=== PATIENT | female | born 1980 | race Caucasian/White ===

== ENCOUNTER 2017-04-07 20:49 | Observation (INO) | payer MEDICAID ==
[2017-04-07 20:50] VITALS: BMI 24.0
--- NOTE | 2017-04-07 21:42 | ED PDOC ---
Arrival/HPI - General Time Seen by Provider: 04/07/17 21:28 Historian: Patient - History of Present Illness Narrative History of Present Illness (Text): 04/07/17 21:41 Laurie Carrillo is a 36 year old female who presents to the ED complaining of intermittent dizziness,near fainting episodes. Patient states she began experiencing intermittent dizziness a few days prior while at work with associated near-syncopal episodes, left eye blurriness, generalized weakness, and head pressure. Patient notes she took Meclizine at home, but denies any relief. Patient denies any loss of consciousness, weakness/numbness, chest pain , shortness of breath, nausea, diarrhea, back pain, neck pain, or any complaints. Symptom Onset: Gradual Symptom Course: Intermittent Activities at Onset: Light Context: Home Past Medical History - Provider Review Nursing Documentation Reviewed: Yes - Past History Past History: No Previous - Tetanus Immunization Tetanus Immunization: Unknown - Neurological Hx Neurological Disorder: Yes Hx Migraine: Yes - Genitourinary/Gynecological Hx Genitourinary Disorders: Yes Hx Cervical Cancer: Yes (4-5 MOS AGO) Other/Comment: multiparity - Past Surgical History Past Surgical History: No Previous - Surgical History Hx Section: Yes Hx Dilation and Curettage: Yes Hx Tubal Ligation: Yes Other/Comment: OVARIAN CYSTECTOMY, PARTIAL REMOVAL OF CERVIX DUE TO CA ? - Anesthesia Hx Anesthesia: Yes Hx Anesthesia Reactions: No - Suicidal Assessment Feels Threatened In Home Enviroment: No Family/Social History - Physician Review Nursing Documentation Reviewed: Yes Family/Social History: Unknown Family HX Smoking Status: Never Smoked Hx Alcohol Use: No Hx Substance Use Treatment: No Allergies/Home Meds Allergies/Adverse Reactions: Allergies No Known Allergies Allergy (Verified 03/24/16 22:08) Home Medications: Home Meds Medication Instructions Recorded Confirmed No Known Home Med 10/24/12 03/24/16 Review of Systems - Physician Review All systems were reviewed & negative as marked: Yes - Review of Systems Constitutional: Other (+generalized weakness). absent: Fevers Eyes: Vision Changes (+left eye blurriness) ENT: Normal Respiratory: Normal. absent: SOB, Cough Cardiovascular: Other (+near-syncopal). absent: Chest Pain Gastrointestinal: absent: Abdominal Pain, Diarrhea, Nausea Genitourinary Female: Normal. absent: Dysuria, Frequency, Hematuria, Urine Output Changes Musculoskeletal: Normal. absent: Back Pain, Neck Pain Skin: Normal Neurological: Dizziness Endocrine: Normal Hemo/Lymphatic: Normal Psychiatric: Normal Physical Exam Vital Signs Reviewed: Yes Vital Signs Temp Pulse Resp BP Pulse Ox 04/08/17 02:58 85 18 111/73 98 04/08/17 00:40 80 18 104/62 99 04/07/17 23:58 97.8 F 81 16 101/67 99 04/07/17 21:38 98.4 F 78 18 106/69 98 Temperature: Afebrile Blood Pressure: Normal Pulse: Regular Respiratory Rate: Normal Appearance: Positive for: Well-Appearing, Non-Toxic, Comfortable Pain Distress: None Mental Status: Positive for: Alert and Oriented X 3 - Systems Exam Head: Present: Atraumatic, Normocephalic Pupils: Present: PERRL Extroacular Muscles: Present: EOMI Conjunctiva: Present: Normal Ears: Present: Normal, NORMAL TM, Normal Canal. No: Erythema, TM Bulging, Fluid , TM Perf Mouth: Present: Moist Mucous Membranes Pharnyx: Present: Normal. No: ERYTHEMA, EXUDATE, TONSILS ENLARGED, Peritonsilar Swelling, Uvular Deviation, Muffled/Hoarse Voice, Strider Neck: Present: Normal Range of Motion. No: Meningeal Signs, MIDLINE TENDERNESS , Paraspinal Tenderness Respiratory/Chest: Present: Clear to Auscultation, Good Air Exchange. No: Respiratory Distress, Accessory Muscle Use Cardiovascular: Present: Regular Rate and Rhythm, Normal S1, S2. No: Murmurs Abdomen: Present: Normal Bowel Sounds. No: Tenderness, Distention, Peritoneal Signs Back: Present: Normal Inspection. No: CVA Tenderness, Midline Tenderness, Paraspinal Tenderness Upper Extremity: Present: Normal Inspection. No: Cyanosis, Edema Lower Extremity: Present: Normal Inspection. No: Edema Neurological: Present: GCS=15, CN II-XII Intact, Speech Normal, Motor Func Grossly Intact, Normal Sensory Function, Normal Cerebellar Funct, Memory Normal Skin: Present: Warm, Dry, Normal Color. No: Rashes Psychiatric: Present: Alert, Oriented x 3, Normal Insight, Normal Concentration Medical Decision Making ED Course and Treatment: 04/07/17 21:41 Impression: 36 year old female c/o dizziness, near-syncope, and generalized weakness. Differential Diagnosis included but are not limited to: near-syncope Plan: -- CT Head w/o contrast -- EKG -- CXR -- Labs, cardiac enzymes -- Urinalysis, urine drug screen -- IV fluids -- Reassess and disposition Progress Notes: 04/07/17 22:03 Reviewed EKG, NSR at [address]-segment elevations or depressions, no T-wave inversions, normal intervals. 04/07/17 23:42 Reviewed radiology, CT Head shows: No acute intracranial hemorrhage, or suspicious mass effect. CXR shows no acute processes. 04/08/17 02:21 Case discussed with medical advisor exhibition organiser, who is aware and agrees with plan. House physician notified. 04/08/17 02:[address] Vail, who is aware and agrees with plan. Accepts pt in to hospitalist service. Pt will go to remote telemetry observation for near- syncope and intractable dizziness. Pt is no acute distress. Discussed results and hospital observation with pt, who is aware and verbalizes understanding. - Lab Interpretations Lab Results: 04/07/17 22:50 04/07/17 22:50 Lab Results 04/07/17 23:47: Urine Opiates Screen Negative, Urine Methadone Screen Negative, Ur Barbiturates Screen Negative, Ur Phencyclidine Scrn Negative, Ur Amphetamines Screen Negative, U Benzodiazepines Scrn Negative, U Oth Cocaine Metabols Negative, U Cannabinoids Screen Negative 04/07/17 23:41: Urine Color Yellow, Urine Appearance Clear, Urine pH 7.0, Ur Specific [place] 1.015, Urine Protein Negative, Urine Glucose (UA) Negative, Urine Ketones Negative, Urine Blood Negative, Urine Nitrate Negative, Urine Bilirubin Negative, Urine Urobilinogen 1.0 H, Ur Leukocyte Esterase Negative, Urine HCG, Qual Negative 04/07/17 22:50: Phosphorus 4.1, Magnesium 2.0 04/07/17 22:50: WBC 8.2, RBC 4.19, Hgb 13.0, Hct 38.4, MCV 91.6, MCH 31.0, MCHC 33.9, RDW 12.7, Plt Count 190, MPV 11.2 H 04/07/17 22:50: PT 10.2, INR 0.94, APTT 27.3 04/07/17 22:50: Sodium 136, Potassium 3.7, Chloride 99, Carbon Dioxide 29, Anion Gap 12, BUN 17, Creatinine 0.8, Est GFR ( Amer) > 60, Est GFR (Non- Af Amer) > 60, Random Glucose 89, Calcium 8.9, Total Bilirubin 0.5, AST 29, ALT 29, Alkaline Phosphatase 58, Lactate Dehydrogenase 429, Total Creatine Kinase 68 , Troponin I < 0.01, Total Protein 7.5, Albumin 4.1, Globulin 3.3, Albumin/ Globulin Ratio 1.2 I have reviewed the lab results: Yes - RAD Interpretation Narrative RAD Interpretations (Text): CT Head shows: Brain: No acute intracranial hemorrhage. No significant white matter disease. No edema. Ventricles: No significant ventriculomegaly. Bones: No acute displaced fracture. Sinuses: Unremarkable as visualized. No acute sinusitis. Mastoid air cells: Unremarkable as visualized. No mastoid effusion. IMPRESSION: No acute intracranial hemorrhage, or suspicious mass effect. CXR shows no acute processes. Radiology Orders: 04/07/17 21:46 HEAD W/O CONTRAST [CT] Stat 04/07/17 21:47 CHEST PORTABLE [RAD] Stat Steam Shovelman: ED Physician, Radiologist - EKG Interpretation Interpreted by ED Physician: Yes Type: 12 lead EKG - Medication Orders Current Medication Orders: Acetaminophen (Tylenol 325mg Tab) 650 mg PO Q6H PRN PRN Reason: Fever >100.4 F Acetaminophen/Butalbital/Caffeine (Fioricet) 1 tab PO Q4H PRN PRN Reason: Headache Albuterol Sulfate (Albuterol 0.083% Inhal [place] (2.5 Mg/3 Ml) Ud) 2.5 mg IH Q2H PRN PRN Reason: Shortness of Breath Famotidine (Pepcid) 20 mg PO BID [facility] Last Admin: 04/08/17 11:41 Dose: 20 mg Sodium Chloride (Sodium Chloride 0.9%) 1,000 mls @ 150 mls/hr IV .Q6H40M [facility] Ibuprofen (Motrin Tab) 400 mg PO Q6H PRN PRN Reason: Pain, Mild (1-3) Meclizine HCl (Antivert) 25 mg PO Q8H PRN PRN Reason: Dizziness Ondansetron HCl (Zofran Inj) 4 mg IVP Q6H PRN PRN Reason: Nausea/Vomiting Discontinued Medications Acetaminophen/Butalbital/Caffeine (Fioricet) 1 tab PO ONCE STA Stop: 04/08/17 02:47 Last Admin: 04/08/17 02:58 Dose: 1 tab Re-Assess: SELENE Pain Assessment Document 04/08/17 03:58 RR (Rec: 04/08/17 04:39 RR [id number]) Pain Reassessment Is this a pain reassessment? Yes Sleep Is patient sleeping during reassessment? Yes Pain Scale Used Pain Scale Used FLACC Sodium Chloride (Sodium Chloride 0.9%) 1,000 mls @ 100 mls/hr IV .Q10H [facility]RIELE Last Admin: 04/07/17 22:53 Dose: 100 mls/hr Iohexol (Omnipaque 350 150 Ml) Confirm Administered Dose 150 ml .ROUTE .STK-MED ONE Stop: 04/08/17 17:56 Ketorolac Tromethamine (Toradol) 30 mg IVP STAT STA Stop: 04/08/17 10:14 - Scribe Statement The provider has reviewed the documentation as recorded by the Dani Martínez Provider Attestation: All medical record entries made by the Dani were at my direction and personally dictated by me. I have reviewed the chart and agree that the record accurately reflects my personal performance of the history, physical exam, medical decision making, and the department course for this patient. I have also personally directed, reviewed, and agree with the discharge instructions and disposition. Disposition/Present on Arrival - Present on Arrival Any Indicators Present on Arrival: No History of DVT/PE: No History of Uncontrolled Diabetes: No Urinary Catheter: No History Surgical Site Infection Following: None - Disposition Have Diagnosis and Disposition been Completed?: Yes Diagnosis: Near syncope, Dizziness Disposition: HOSPITALIZED Disposition Time: Patient Plan: Observation Patient Problems: Current Active Problems Problem Status Onset Dizziness Acute Near syncope Acute Condition: STABLE
[2017-04-07] MEDS: Sodium Chloride 0.9% 1,000 ML IV SCH (22:53)
[2017-04-07 23:02] LABS: HEMATOCRIT 38.4 % (36.0-48.0); MEAN CELL VOLUME 91.6 fL (80.0-105.0); MEAN CORPUSCULAR HGB CONC 33.9 g/dl (31.0-37.0); MEAN PLATELET VOLUME 11.2 fl (7.0-11.0); RED CELL DISTRIBUTION WIDTH 12.7 % (11.5-14.5); WHITE BLOOD COUNT 8.2 10^3/ul (4.5-11.0)
[2017-04-07 23:09] LABS: ALB/GLOB RATIO 1.2 (1.1-1.8); ALKALINE PHOSPHATASE 58 U/L (38-133); ALT/SGPT 29 U/L (7-56); AST/SGOT 29 U/L (15-39); BILIRUBIN,TOTAL 0.5 mg/dL (0.2-1.3); BLOOD UREA NITROGEN 17 mg/dL (7-21); CALCIUM 8.9 mg/dL (8.4-10.5); CARBON DIOXIDE 29 mmol/L (21-33); CHLORIDE 99 mmol/L (98-107); GFR AFRICAN-AMERICAN > 60; GLUCOSE,RANDOM 89 mg/dL (70-110); POTASSIUM 3.7 mmol/L (3.6-5.0); SODIUM 136 mmol/L (132-148); TOTAL PROTEIN 7.5 g/dL (5.8-8.3)
[2017-04-07 23:21] LABS: TROPONIN I < 0.01 ng/mL
[2017-04-07 23:29] LABS: INR 0.94 (0.93-1.08); PARTIAL THROMBOPLASTIN TIME 27.3 Seconds (23.7-30.8)
--- NOTE | 2017-04-07 23:35 | CT ---
EXAM: CT Head Without Intravenous Contrast CLINICAL HISTORY: 36 years old, female; Signs and symptoms; Dizziness; Additional info: Dizzy TECHNIQUE: Axial computed tomography images of the head/brain without intravenous contrast. This CT exam was performed using one or more of the following dose reduction techniques: automated exposure control, adjustment of the mA and/or kV according to patient size, and/or use of iterative reconstruction technique. COMPARISON: No relevant prior studies available. FINDINGS: Brain: No acute intracranial hemorrhage. No significant white matter disease. No edema. Ventricles: No significant ventriculomegaly. Bones: No acute displaced fracture. Sinuses: Unremarkable as visualized. No acute sinusitis. Mastoid air cells: Unremarkable as visualized. No mastoid effusion. IMPRESSION: No acute intracranial hemorrhage, or suspicious mass effect. Acute infarction may be CT occult within first 24 hours. If a focal deficit persists, consider followup CT or MRI for further evaluation.
[2017-04-08 00:16] LABS: URINE BILIRUBIN NEGATIVE (NEGATIVE); URINE BLOOD NEGATIVE (NEGATIVE); URINE GLUCOSE (UA) NEGATIVE (NEGATIVE); URINE KETONE NEGATIVE (NEGATIVE); URINE LEUKOCYTE ESTERASE NEGATIVE Leu/uL (NEGATIVE); URINE PROTEIN NEGATIVE mg/dL (<30 mg/dL)
[2017-04-08 00:18] LABS: URINE APPEARANCE CLEAR (CLEAR); URINE COLOR YELLOW (YELLOW)
[2017-04-08] MEDS ORDERED: Albuterol 0.083% Inhal Sol (2.5 mg/3 mL) UD IH PRN (02:28)
[2017-04-08 02:43] LABS: PHOSPHOROUS 4.1 mg/dL (2.5-4.5)
[2017-04-08] MEDS ORDERED: Apap-Butalbital-Caffeine 325-50-40mg Tab PO PRN (02:47)
--- NOTE | 2017-04-08 02:56 | CP.PCM.HP ---
<SharleneJerry montanez - Last Filed: 04/08/17 02:51> History of Present Illness - History of Present Illness History of Present Illness: CC: Headache and dizziness This patient is a 36yo F w/ no PMhx, on no medications, who is presenting to the ED for intermittent dizziness associated with headache, nausea, and photophobia. The patient states this has happened to her before, and her PMD prescribed her meclizine, which helped initially along with some ibuprofen. During the past week, the meclizine did not help her as much. Last year, the patient had a full neurological workup, including brain MRI, EEG, and EMG which was completely negative as per the patient. She has vomited once, on Thursday, with the dizziness. She does not qualify it as blurry vision, or room spinning but states that her left sided vision sometimes gets a little "blurry and she gets a headache that is pounding". 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, hairdresser, denies current smoking/drugs/EtOH socially, has 3 children, independent in all activities, walks without issue with no cane and has housing Allergies: Denies Present on Admission - Present on Admission Any Indicators Present on Admission: No History of DVT/PE: No History of Uncontrolled Diabetes: No Urinary Catheter: No Decubitus Ulcer Present: No Past Patient History - Tetanus Immunizations Tetanus Immunization: Unknown - Past Medical History & Family History Past Medical History?: No - Past Social History Smoking Status: Never Smoked - NEUROLOGICAL Hx Neurological Disorder: Yes Hx Migraine: Yes - GENITOURINARY/GYNECOLOGICAL Hx Genitourinary Disorders: Yes Hx Cervical Cancer: Yes (4-5 MOS AGO) Other/Comment: multiparity - SURGICAL HISTORY Hx Section: Yes Hx Dilation and Curettage: Yes Hx Tubal Ligation: Yes Other/Comment: OVARIAN CYSTECTOMY, PARTIAL REMOVAL OF CERVIX DUE TO CA ? - ANESTHESIA Hx Anesthesia: Yes Hx Anesthesia Reactions: No Meds Allergies/Adverse Reactions: Allergies Allergy/AdvReac Type Severity Reaction Status Date / Time No Known Allergies Allergy Verified 03/24/16 22:08 Physical Exam - Constitutional Appears: Well, Non-toxic Additional comments: well groomed pleasant female responding appropriately to questions, resting comfortably in bed - Head Exam Head Exam: ATRAUMATIC - Eye Exam Eye Exam: EOMI, Normal appearance Pupil Exam: PERRL - ENT Exam ENT Exam: Mucous Membranes Moist. absent: Mucous Membranes Dry - Neck Exam Neck exam: Positive for: Full Rom, Normal Inspection. Negative for: Lymphadenopathy, Meningismus, Tenderness, Thyromegaly - Respiratory Exam Respiratory Exam: Clear to Auscultation Bilateral, NORMAL BREATHING PATTERN. absent: Rales, Rhonchi, Wheezes - Cardiovascular Exam Cardiovascular Exam: REGULAR RHYTHM, RRR, +S1, +S2. absent: Bradycardia, Tachycardia, Clicks, Diastolic murmur, Gallop, Irregular Rhythm, JVD, Rubs, +S4 , Systolic Murmur - GI/Abdominal Exam GI & Abdominal Exam: Normal Bowel Sounds, Soft. absent: Bruit, Diminished Bowel Sounds, Distended, Firm, Guarding, Hyperactive Bowel Sounds, Hypoactive Bowel Sounds, Mass, Organomegaly, Pulsatile Mass, Rebound, Tenderness - Rectal Exam Rectal Exam: Deferred - Extremities Exam Extremities exam: Positive for: full ROM, normal capillary refill, normal inspection, pedal pulses present. Negative for: calf tenderness, joint swelling , pedal edema, tenderness - Back Exam Back exam: FULL ROM, NORMAL INSPECTION. absent: CVA tenderness (L), CVA tenderness (R), muscle spasm, paraspinal tenderness, rash noted, tenderness, vertebral tenderness - Neurological Exam Neurological exam: Alert, CN II-XII Intact, Normal Gait, Oriented x3, Reflexes Normal Additional comments: Neuro exam is completely normal, all cranial nerves intact, no nystagmus - Psychiatric Exam Psychiatric exam: Normal Affect, Normal Mood Results - Vital Signs Recent Vital Signs: Last Vital Signs Temp 97.8 F 04/07/17 23:58 Pulse 80 04/08/17 00:40 Resp 18 04/08/17 00:40 BP 104/62 04/08/17 00:40 Pulse Ox 99 06/28/17 00:40 - Labs Result Diagrams: 04/07/17 22:50 04/07/17 22:50 Assessment & Plan - Assessment and Plan (Free Text) Assessment: 36yo F admitted for possible migraine and near syncope Possible Migraine and near syncope -Fiorcet PRN and Meclizine; patient was given no analgesia in the ED and no antinausea/anti vertigo medicines in the ED -head CT negative -Chest X-Ray Normal -EKG NSR -Echo ordered, f/u results -patient has a reported neuro workup within the past year that was completely negative EEG, MRI brain, and EMG studies, currently has a completely steady gait , is resting comfortably in her room, and is responding appropriately to questions -orthostatics were negative; pt is s/p 1L NS in the ED Proph Pepcid Regular Diet OOB encouraged Case discussed with Dr. Yared Lopez PGY1 Night Float Decision To Admit - Pt Status Changed To: Hospital Disposition Of: Observation - . Bed Request Type: Med/Surg Admitting Physician: Agustín Vail <Agustín Vail - Last Filed: 04/08/17 05:07> Results - Vital Signs Recent Vital Signs: Last Vital Signs Temp 98.0 F 04/08/17 04:08 Pulse 65 04/08/17 04:08 Resp 16 04/08/17 04:08 BP 100/60 04/08/17 04:08 Pulse Ox 98 04/08/17 02:58 - Labs Result Diagrams: 04/07/17 22:50 04/07/17 22:50 Attending/Attestation - Attestation I have personally seen and examined this patient.: Yes I have fully participated in the care of the patient.: Yes I have reviewed all pertinent clinical information: Yes Notes (Text): 04/08/17 05:06 Patient was seen when she was in bed # 367-02. Agree with history , physical , assessment and plan with following addendum. 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 ALLERGIES:Denies. PMH:Denies. PAST SURGICAL HISTORY: + bilateral tubal ligation - 4 years ago. Excison of ovarian cyst , biopsy revealed "close to cancer" OB-SALES ORDER CLERK History-, one miscarriage, LMP03/26/2017. SOCIAL HISTORY:Smoking-quit 10 years ago, smoked 1 pack per 2 weeks x 1 year ( Summer) ETOH-Occ. Drugs-Never. FH:Many members with DM. Maternal Uncle-Prostate cancer. One cousin-Uterine cancer. ROS:When she was 5-6 years old had an episode of passing out and had dizzines, mother told her that she had food allergy. States that she gets nausea with some food and can't take them. Had injury to left ear about one year ago when she was at water slide could not hear well for some time. Has eye glasses for far vision. History of ear infection x 2. Seasonal allergies positive. Had anemia "Growing UP" Has migraines sometimes. History of anxiety is positive.
[2017-04-08] MEDS: Apap-Butalbital-Caffeine 325-50-40mg Tab PO STA ×2 (02:58→03:10)
--- NOTE | 2017-04-08 07:19 | RAD ---
HISTORY: dizzy COMPARISON: No prior. FINDINGS: LUNGS: No active pulmonary disease. PLEURA: No significant pleural effusion identified, no pneumothorax apparent. CARDIOVASCULAR: Normal. OSSEOUS STRUCTURES: No significant abnormalities. VISUALIZED UPPER ABDOMEN: Normal. OTHER FINDINGS: None. IMPRESSION: No active disease.
[2017-04-08 08:36] VITALS: RESP 18
[2017-04-08 09:47] LABS: MEAN CELL VOLUME 90.7 fL (80.0-105.0); MEAN CORPUSCULAR HEMOGLOBIN 30.3 pg (25.0-35.0); MEAN CORPUSCULAR HGB CONC 33.4 g/dl (31.0-37.0); MEAN PLATELET VOLUME 11.4 fl (7.0-11.0); RED CELL DISTRIBUTION WIDTH 12.8 % (11.5-14.5); WHITE BLOOD COUNT 5.5 10^3/ul (4.5-11.0)
[2017-04-08 09:50] LABS: HEMATOCRIT 34.1 % (36.0-48.0)
[2017-04-08 10:02] LABS: BLOOD UREA NITROGEN 13 mg/dL (7-21); CALCIUM 7.9 mg/dL (8.4-10.5); CARBON DIOXIDE 24 mmol/L (21-33); CHLORIDE 107 mmol/L (98-107); GFR AFRICAN-AMERICAN > 60; GLUCOSE,RANDOM 95 mg/dL (70-110); SODIUM 136 mmol/L (132-148)
--- NOTE | 2017-04-08 11:05 | CARD ---
APPROVED REPORT EKG Measurement Heart [id number] <Conclusion> Normal sinus rhythm Normal ECG
--- NOTE | 2017-04-08 16:57 | CP.PCM.CON ---
History of Present Illness - History of Present Illness History of Present Illness: NEURO CONSULT NOTE: 04/08/17 CHIEF COMPLAINT: HEADACHE AND DIZZINESS HPI: THIS IS A 36 YEAR OLD WOMAN WITH HISTORY OF HEADACHES IN THE PAST AND SYNCOPAL EVENT WHERE SHE HAD A MRI OF BRAIN, EEG WITH HER NEUROLOGIST DR. GREGORY WHICH WAS NORMAL. SHE PRESENTS WITH DIFFUSE PRESSURE HEADACHE ASSOCIATED WITH PHOTOPHOBIA , PHOTOPHONIA, NAUSEA WITH MILD SPINNING SENSATION OF THE ROOM AND LIGHTHEADEDNESS. SHE GETS BARELY 1-2 SEVERE HEADACHES PER MONTH. HER BP WAS NOTED TO BE SYSTOLICALLY AND DIASTOLICALLY LOW. CT HEAD WAS NEGATIVE. CURRENTLY HER HEADACHES ARE MUCH BETTER AND IS WALKING AROUND WITHOUT ISSUES. ROS: 14 POINT REVIEW OF SYMPTOMS IS NEGATIVE PER HPI. ALLERGIES: NONE SOCIAL HISTORY: NO ILLICIT DRUG USE, SMOKING, OR ETOH USE. FAMILY: NON CONTRIBUTORY. MEDICATIONS: REVIEWED BY NURSE'S RECONCILIATION SHEET. PAST MEDICAL HISTORY: HEADACHES PHYSICAL EXAM: VITAL SIGNS: REVIEWED BY THE CHART GENERAL EXAM: PATIENT SEEN IN BED, IN NO ACUTE DISTRESS MORBIDLY OBESE. HEENT: PERRLA, EOMI, NECK SUPPLE, NO JVD, NO ADENOPATHY CVS: S1, S2, RRR, NO MURMURS NOTED LUNGS: CLEAR TO AUSCULTATION, NO ADVENTITIOUS SOUNDS ABDOMEN: SOFT AND NONTENDER EXTREMITIES: NO CLUBBING OR CYANOSIS. PP 2+ B/L NEURO: PT IS ALERT AND ORIENTED TO PERSON, PLACE, AND YEAR. , RECALL TO 5 MINUTES 3/3, SPEECH IS FLUENT WITHOUT ERRORS, CN II-XII INTACT, MOTOR EXAM: NORMAL TONE, NORMAL BULK OF MUSCLE, MOVES ALL EXTREMITIES EQUALLY, NO PRONATOR DRIFT SEEN. SENSORY EXAM: LIGHT TOUCH, PIN PRICK UP TO CALVES B/L, PROPRIOCEPTION , VIBRATION ARE INTACT B/L DEEP TENDON REFLEXES: 2+ THROUGHOUT. COORDINATION: FINGER TO NOSE IS INTACT. HEEL TO GRIDER IS INTACT GAIT: NORMAL. LABS: REVIEWED BY THE CHART. ASSESSMENT AND PLAN: THIS IS A 36 YEAR OLD WOMAN WITH HISTORY OF HEADACHES IN THE PAST AND SYNCOPAL EVENT WHERE SHE HAD A MRI OF BRAIN, EEG WITH HER NEUROLOGIST DR. GREGORY WHICH WAS NORMAL. SHE PRESENTS WITH DIFFUSE PRESSURE HEADACHE ASSOCIATED WITH PHOTOPHOBIA , PHOTOPHONIA, NAUSEA WITH MILD SPINNING SENSATION OF THE ROOM AND LIGHTHEADEDNESS. SHE GETS BARELY 1-2 SEVERE HEADACHES PER MONTH. HER BP WAS NOTED TO BE SYSTOLICALLY AND DIASTOLICALLY LOW. CT HEAD WAS NEGATIVE. CURRENTLY HER HEADACHES ARE MUCH BETTER AND IS WALKING AROUND WITHOUT ISSUES. IMPRESSION: CONSTELLATION OF SYMPTOMS ARE MORE OF A MIGRAINE WITH AURA. DIZZINESS IS MORE RELATED TO LOW BP 1.. ASA 81 MG FOR STROKE PREVENTION 2. MONITOR ELECTROLYTES AND CORRECT ACCORDINGLY. HYDRATE. 3. FIORECET AT THE ACUTE ONSET OF HEADACHE AND FOLLOW UP WITH NEUROLOGIST OUTPATIENT. THANK YOU PLEASE RECONSULT NECESSARY. Kelly COYLE MD Past Patient History - Tetanus Immunizations Tetanus Immunization: Unknown - Past Medical History & Family History Past Medical History?: No - Past Social History Smoking Status: Former Smoker - NEUROLOGICAL Hx Neurological Disorder: Yes Hx Dizziness: Yes Hx Migraine: Yes - MUSCULOSKELETAL/RHEUMATOLOGICAL Hx Falls: No - GENITOURINARY/GYNECOLOGICAL Hx Genitourinary Disorders: Yes Other/Comment: multiparity. - SURGICAL HISTORY Other/Comment: OVARIAN CYSTECTOMY, PARTIAL REMOVAL OF CERVIX DUE TO CA ? - ANESTHESIA Hx Anesthesia: Yes Hx Anesthesia Reactions: No Meds Allergies/Adverse Reactions: Allergies Allergy/AdvReac Type Severity Reaction Status Date / Time No Known Allergies Allergy Verified 03/24/16 22:08 - Medications Medications: Current Medications Acetaminophen (Tylenol 325mg Tab) 650 mg PO Q6H PRN PRN Reason: Fever >100.4 F Acetaminophen/Butalbital/Caffeine (Fioricet) 1 tab PO Q4H PRN PRN Reason: Headache Albuterol Sulfate (Albuterol 0.083% Inhal [place] (2.5 Mg/3 Ml) Ud) 2.5 mg IH Q2H PRN PRN Reason: Shortness of Breath Famotidine (Pepcid) 20 mg PO BID [facility] Last Admin: 04/08/17 11:41 Dose: 20 mg Sodium Chloride (Sodium Chloride 0.9%) 1,000 mls @ 150 mls/hr IV .Q6H40M [facility] Ibuprofen (Motrin Tab) 400 mg PO Q6H PRN PRN Reason: Pain, Mild (1-3) Meclizine HCl (Antivert) 25 mg PO Q8H PRN PRN Reason: Dizziness Ondansetron HCl (Zofran Inj) 4 mg IVP Q6H PRN PRN Reason: Nausea/Vomiting Results - Vital Signs Recent Vital Signs: Last Vital Signs Temp 98.4 F 04/08/17 16:00 Pulse 84 04/08/17 16:00 Resp 18 04/08/17 16:00 BP 110/73 04/08/17 16:00 Pulse Ox 99 04/08/17 16:00 - Labs Result Diagrams: 04/08/17 09:30 04/08/17 09:30 Labs: Laboratory Results - last 24 hr 04/08/17 04/08/17 04/08/17 09:30 09:30 12:30 WBC 5.5 D RBC 3.76 Hgb 11.4 L Hct 34.1 L MCV 90.7 MCH 30.3 MCHC 33.4 RDW 12.8 Plt Count 157 MPV 11.4 H D-Dimer, Quantitative Sodium 136 Potassium 4.0 Chloride 107 Carbon Dioxide 24 Anion Gap 9 L BUN 13 Creatinine 0.7 Est GFR ( Amer) > 60 Est GFR (Non-Af Amer) > 60 Random Glucose 95 Calcium 7.9 L TSH 3rd Generation 2.09 04/08/17 15:03 WBC RBC Hgb Hct MCV MCH MCHC RDW Plt Count MPV D-Dimer, Quantitative 0.56 H Sodium Potassium Chloride Carbon Dioxide Anion Gap BUN Creatinine Est GFR ( Amer) Est GFR (Non-Af Amer) Random Glucose Calcium TSH 3rd Generation
--- NOTE | 2017-04-08 18:53 | CT ---
PROCEDURE: CT Chest with contrast (Pulmonary Angiogram) HISTORY: Rule out Pulmonary embolism COMPARISON: None available. TECHNIQUE: Axial computed tomography images were obtained of the chest in the pulmonary arterial phase of enhancement. Coronal and sagittal reformatted images were created and reviewed. Intravenous contrast dose: Radiation dose: Total exam DLP = 325 mGy-cm. This CT exam was performed using one or more of the following dose reduction techniques: Automated exposure control, adjustment of the mA and/or kV according to patient size, and/or use of iterative reconstruction technique. Total exam DLP = 325 mGy-cm. FINDINGS: PULMONARY ARTERIES: Unremarkable. No pulmonary embolism. AORTA: No acute findings. No thoracic aortic aneurysm. LUNGS: Unremarkable. No nodule, mass or pulmonary consolidation. PLEURAL SPACES: Unremarkable. No effusion or pneuomothorax. HEART: Unremarkable. No cardiomegaly. No significant pericardial effusion. LYMPH NODES: No lymphadenopathy. BONES, CHEST WALL: Unremarkable. No fracture or destructive lesion OTHER FINDINGS: Unremarkable. IMPRESSION: Unremarkable CT pulmonary angiogram. No pulmonary embolus.
--- NOTE | 2017-04-08 19:41 | CARD ---
APPROVED REPORT EXAM: Two-dimensional and M-mode echocardiogram with Doppler and color Doppler. INDICATION Syncope 2D DIMENSIONS Left Atrium (2D)3.0 (1.6-4.0cm)IVSd0.9 (0.7-1.1cm) LVDd4.7 (3.9-5.9cm)PWd0.9 (0.7-1.1cm) LVDs3.5 (2.5-4.0cm)FS (%) 25.9 % LVEF (%)51.0 (>50%) M-Mode DIMENSIONS Aortic Root2.70 (2.2-3.7cm)Aortic Cusp Exc.1.80 (1.5-2.0cm) Aortic Valve AoV Peak Agulrehz78.1cm/Veronica Peak GR.4mmHg Mitral Valve MV E Gekgccqf72.4cm/sMV A Srltfitu72.6cm/sE/A ratio1.4 TDI E/Lateral E'0.0E/Medial E'0.0 Tricuspid Valve TR Peak [id number]/sRAP [id number] Peak Gr.18mmHg [id number] LEFT VENTRICLE The left ventricle is normal size. There is normal left ventricular wall thickness. Left ventricle systolic function is low normalto Mildlly decreased.EF-50-55% There is mild hypokinesis in the apical anterior wall. The left ventricular diastolic function is normal. No left ventricle thrombus noted on this study. There is no ventricular septal defect visualized. There is no left ventricular aneurysm. There is no mass noted in the left ventricle. RIGHT VENTRICLE The right ventricle is normal size. There is normal right ventricular wall thickness. The right ventricular systolic function is normal. ATRIA The left atrium size is normal. The right atrium size is normal. The interatrial septum is intact with no evidence for an atrial septal defect. The atrial septum is aneurysmal. AORTIC VALVE The aortic valve is calcified but opens well. There is trace to mild aortic regurgitation. There is no aortic valvular stenosis. There is no aortic valvular vegetation. MITRAL VALVE The mitral valve is thickened but opens well. Mitral regurgitation is mild to moderate. There is no mitral valve stenosis. There is no evidence of mitral valve prolapse. TRICUSPID VALVE The tricuspid valve leaflets are thickened , but open well. There is mild to moderate tricuspid regurgitation.RVSP-28 mmof hg. There is no tricuspid valve stenosis. There is no tricuspid valve prolapse or vegetation. PULMONIC VALVE The pulmonic valve is not well visualized. There is trace pulmonic valvular regurgitation. There is no pulmonic valvular stenosis. GREAT VESSELS The aortic root is normal in size. The ascending aorta is normal in size. The pulmonary artery is normal. The IVC is normal in size and collapses >50% with inspiration. PERICARDIAL EFFUSION There is no pleural effusion. There is no pericardial effusion. <Conclusion> The left ventricle is normal size. There is normal left ventricular wall thickness. Left ventricle systolic function is low normalto Mildlly decreased.EF-50-55% There is trace to mild aortic regurgitation. Mitral regurgitation is mild to moderate. There is mild to moderate tricuspid regurgitation.RVSP-28 mmof hg. The IVC is normal in size and collapses >50% with inspiration. There is no pericardial effusion. No Vegetation or thrombus noted. The interatrial septum is intact with no evidence for an atrial septal defect. The atrial septum is aneurysmal.
[2017-04-08] MEDS: Sodium Chloride 0.9% 1,000 ML IV SCH ×3 (20:49→20:57)
[2017-04-09] MEDS: Sodium Chloride 0.9% 1,000 ML IV SCH (02:27)
[2017-04-09 08:10] LABS: MEAN CELL VOLUME 91.4 fL (80.0-105.0); MEAN CORPUSCULAR HEMOGLOBIN 30.1 pg (25.0-35.0); RED CELL DISTRIBUTION WIDTH 12.8 % (11.5-14.5); WHITE BLOOD COUNT 6.5 10^3/ul (4.5-11.0)
[2017-04-09 08:17] VITALS: BP 99/60; TEMP 97.7; O2SAT 97
[2017-04-09 08:20] LABS: BLOOD UREA NITROGEN 11 mg/dL (7-21); CALCIUM 8.4 mg/dL (8.4-10.5); CARBON DIOXIDE 26 mmol/L (21-33); CHLORIDE 105 mmol/L (98-107); GFR AFRICAN-AMERICAN > 60; GLUCOSE,RANDOM 95 mg/dL (70-110); POTASSIUM 4.2 mmol/L (3.6-5.0); SODIUM 137 mmol/L (132-148)
--- NOTE | 2017-04-09 10:52 | CP.PCM.PN ---
Subjective - Date & Time of Evaluation Date of Evaluation: 04/09/17 Time of Evaluation: 10:48 - Subjective Subjective: no dizziness Objective - Vital Signs/Intake and Output Vital Signs (last 24 hours): Temp Pulse Resp BP Pulse Ox 97.7 F 74 18 99/60 L 97 04/09/17 08:17 04/09/17 08:17 04/09/17 08:17 04/09/17 08:17 04/09/17 08:17 Intake and Output: 04/09/17 04/09/17 06:59 18:59 Intake Total 780 Balance 780 - Medications Medications: Current Medications Acetaminophen (Tylenol 325mg Tab) 650 mg PO Q6H PRN PRN Reason: Fever >100.4 F Acetaminophen/Butalbital/Caffeine (Fioricet) 1 tab PO Q4H PRN PRN Reason: Headache Albuterol Sulfate (Albuterol 0.083% Inhal [place] (2.5 Mg/3 Ml) Ud) 2.5 mg IH Q2H PRN PRN Reason: Shortness of Breath Famotidine (Pepcid) 20 mg PO BID [facility] Last Admin: 04/09/17 09:32 Dose: 20 mg Sodium Chloride (Sodium Chloride 0.9%) 1,000 mls @ 150 mls/hr IV .Q6H40M [facility] Last Admin: 04/09/17 02:27 Dose: 150 mls/hr Ibuprofen (Motrin Tab) 400 mg PO Q6H PRN PRN Reason: Pain, Mild (1-3) Meclizine HCl (Antivert) 25 mg PO Q8H PRN PRN Reason: Dizziness Ondansetron HCl (Zofran Inj) 4 mg IVP Q6H PRN PRN Reason: Nausea/Vomiting - Labs Labs: 04/09/17 08:00 04/09/17 08:00 PT 10.2 Seconds (9.9-11.8) 04/07/17 22:50 INR 0.94 (0.93-1.08) 04/07/17 22:50 APTT 27.3 Seconds (23.7-30.8) 04/07/17 22:50 - Head Exam Head Exam: ATRAUMATIC, NORMAL INSPECTION, NORMOCEPHALIC - Neck Exam Neck Exam: Normal Inspection - Respiratory Exam Respiratory Exam: NORMAL BREATHING PATTERN - Cardiovascular Exam Cardiovascular Exam: REGULAR RHYTHM - Extremities Exam Extremities Exam: Normal Inspection (No reported arrhythmias) Assessment and Plan - Assessment and Plan (Free Text) Assessment: Recurrent dizzines H/O recent ear infection CT Angio no PE ECho aneurysmal atrial septum, Mild to moderate MR, EF 50-55% Plan: ASA 81 mg daily, F/U Echo in 2 years period
[2017-04-09 12:19] VITALS: PULSE 90
--- NOTE | 2017-04-09 17:43 | CP.PCM.DIS ---
<Gasper Mcneal - Last Filed: 04/09/17 17:54> Provider - Provider Date of Admission: 04/08/17 02:28 Attending physician: Seema Harris MD Primary care physician: Annalee Langston DO Consults: Everett Alberto Time Spent in preparation of Discharge (in minutes): 45 Hospital Course - Lab Results Lab Results: Most Recent Lab Values WBC 6.5 10^3/ul (4.5-11.0) 04/09/17 08:00 RBC 4.05 10^6/uL (3.5-6.1) 04/09/17 08:00 Hgb 12.2 gm/dL (12.0-16.0) 04/09/17 08:00 Hct 37.0 % (36.0-48.0) 04/09/17 08:00 MCV 91.4 fL (80.0-105.0) 04/09/17 08:00 MCH 30.1 pg (25.0-35.0) 04/09/17 08:00 MCHC 33.0 g/dl (31.0-37.0) 04/09/17 08:00 RDW 12.8 % (11.5-14.5) 04/09/17 08:00 Plt Count 165 10^3/uL (120.0-450.0) 04/09/17 08:00 MPV 11.0 fl (7.0-11.0) 04/09/17 08:00 PT 10.2 Seconds (9.9-11.8) 04/07/17 22:50 INR 0.94 (0.93-1.08) 04/07/17 22:50 APTT 27.3 Seconds (23.7-30.8) 04/07/17 22:50 D-Dimer, Quantitative 0.56 mg/L FEU (0-0.50) H 04/08/17 15:03 Sodium 137 mmol/L (132-148) 04/09/17 08:00 Potassium 4.2 mmol/L (3.6-5.0) 04/09/17 08:00 Chloride 105 mmol/L (98-107) 04/09/17 08:00 Carbon Dioxide 26 mmol/L (21-33) 04/09/17 08:00 Anion Gap 10 (10-20) 04/09/17 08:00 BUN 11 mg/dL (7-21) 04/09/17 08:00 Creatinine 0.8 mg/dL (0.5-1.4) 04/09/17 08:00 Est GFR ( Amer) > 60 04/09/17 08:00 Est GFR (Non-Af Amer) > 60 04/09/17 08:00 Random Glucose 95 mg/dL (70-110) 04/09/17 08:00 Calcium 8.4 mg/dL (8.4-10.5) 04/09/17 08:00 Phosphorus 4.1 mg/dL (2.5-4.5) 04/07/17 22:50 Magnesium 2.0 mg/dL (1.7-2.2) 04/07/17 22:50 Total Bilirubin 0.5 mg/dL (0.2-1.3) 04/07/17 22:50 AST 29 U/L (15-39) 04/07/17 22:50 ALT 29 U/L (7-56) 04/07/17 22:50 Alkaline Phosphatase 58 U/L (38-133) 04/07/17 22:50 Lactate Dehydrogenase 429 U/L (333-699) 04/07/17 22:50 Total Creatine Kinase 68 U/L (35-230) 04/07/17 22:50 Troponin I < 0.01 ng/mL 04/07/17 22:50 Total Protein 7.5 g/dL (5.8-8.3) 04/07/17 22:50 Albumin 4.1 g/dL (3.0-4.8) 04/07/17 22:50 Globulin 3.3 gm/dL 04/07/17 22:50 Albumin/Globulin Ratio 1.2 (1.1-1.8) 04/07/17 22:50 TSH 3rd Generation 2.09 mIU/mL (0.46-4.68) 04/08/17 12:30 Urine Color Yellow (YELLOW) 04/07/17 23:41 Urine Appearance Clear (CLEAR) 04/07/17 23:41 Urine pH 7.0 (4.7-8.0) 04/07/17 23:41 Ur Specific [place] 1.015 (1.005-1.035) 04/07/17 23:41 Urine Protein Negative mg/dL (<30 mg/dL) 04/07/17 23:41 Urine Glucose (UA) Negative mg/dL (NEGATIVE) 04/07/17 23:41 Urine Ketones Negative mg/dL (NEGATIVE) 04/07/17 23:41 Urine Blood Negative (NEGATIVE) 04/07/17 23:41 Urine Nitrate Negative (NEGATIVE) 04/07/17 23:41 Urine Bilirubin Negative (NEGATIVE) 04/07/17 23:41 Urine Urobilinogen 1.0 E.U./dL (<1 E.U./dL) H 04/07/17 23:41 Ur Leukocyte Esterase Negative Augusto/uL (NEGATIVE) 04/07/17 23:41 Urine HCG, Qual Negative (NEGATIVE) 04/07/17 23:41 Urine Opiates Screen Negative (NEGATIVE) 04/07/17 23:47 Urine Methadone Screen Negative (NEGATIVE) 04/07/17 23:47 Ur Barbiturates Screen Negative (NEGATIVE) 04/07/17 23:47 Ur Phencyclidine Scrn Negative (NEGATIVE) 04/07/17 23:47 Ur Amphetamines Screen Negative (NEGATIVE) 04/07/17 23:47 U Benzodiazepines Scrn Negative (NEGATIVE) 04/07/17 23:47 U Oth Cocaine Metabols Negative (NEGATIVE) 04/07/17 23:47 U Cannabinoids Screen Negative (NEGATIVE) 04/07/17 23:47 - Hospital Course Hospital Course: Attending: Rosa M Admit date- 04/08 DC date- 04/09 Consults Everett Alberto DC diagnoses 1. migraine 2. dizziness Procedures- none No complications HPI: see h/p Labs: see lab data Hospital course This is a 36 year old female admitted for possible migraine and near syncope Possible Migraine and near syncope -Fiorcet PRN and Meclizine; patient was given no analgesia in the ED and no antinausea/anti vertigo medicines in the ED -head CT negative -Chest X-Ray Normal -EKG NSR -Echo shows some mild aortic regurgitation -patient has a reported neuro workup within the past year that was completely negative EEG, MRI brain, and EMG studies, currently has a completely steady gait , is resting comfortably in her room, and is responding appropriately to questions -orthostatics were negative; pt is s/p 1L NS in the ED -pt had elevated d dimer -cta negative for PE -cleared by neuro for discharge Ppx Pepcid Regular Diet OOB encouraged DC meds 1. fioricet. 2. meclizine DC instructions Please return if condition worsens. Please dc home. Please f/u with PMD and neurology as needed. - Date & Time of H&P Date of H&P: 04/08/17 Time of H&P: 02:51 Discharge Exam - Head Exam Head Exam: ATRAUMATIC, NORMAL INSPECTION, NORMOCEPHALIC - Eye Exam Eye Exam: EOMI - ENT Exam ENT Exam: Mucous Membranes Moist - Neck Exam Neck exam: Full Rom, Normal Inspection - Respiratory Exam Respiratory Exam: NORMAL BREATHING PATTERN - Cardiovascular Exam Cardiovascular Exam: +S1, +S2 - GI/Abdominal Exam GI & Abdominal Exam: Normal Bowel Sounds - Extremities Exam Extremities exam: full ROM, normal inspection - Back Exam Back exam: NORMAL INSPECTION - Neurological Exam Neurological exam: Alert, Oriented x3 - Psychiatric Exam Psychiatric exam: Normal Affect, Normal Mood - Skin Skin Exam: Dry, Intact, Normal Color, Warm Discharge Plan - Discharge Medications Prescriptions: Acetaminophen/Butalbital/Caf [Fioricet] 1 tab PO Q4H PRN #60 tab PRN Reason: Headache Meclizine [Meclizine*] 25 mg PO Q8H PRN #60 tab PRN Reason: Dizziness - Follow Up Plan Condition: STABLE Disposition: HOME/ ROUTINE Instructions: Migraine Headache (DC), Migraine Headache (GEN), Vertigo (DC), Vertigo (GEN), Near Syncope (ED) Additional Instructions: IF YOU EXPERIENCE WORSENING OF SYMPTOMS, GO TO THE ER. FOLLOW UP WITH DOCTOR WITHIN ONE WEEK. Referrals: Jethro Alberto MD [Staff Provider] - <[facility]osa M [facility] - Last Filed: 04/10/17 11:53> Provider - Provider Date of Admission: 04/08/17 02:28 Attending physician: Seema Harris MD Primary care physician: Annalee Langston DO Hospital Course - Lab Results Lab Results: Most Recent Lab Values WBC 6.5 10^3/ul (4.5-11.0) 04/09/17 08:00 RBC 4.05 10^6/uL (3.5-6.1) 04/09/17 08:00 Hgb 12.2 gm/dL (12.0-16.0) 04/09/17 08:00 Hct 37.0 % (36.0-48.0) 04/09/17 08:00 MCV 91.4 fL (80.0-105.0) 04/09/17 08:00 MCH 30.1 pg (25.0-35.0) 04/09/17 08:00 MCHC 33.0 g/dl (31.0-37.0) 04/09/17 08:00 RDW 12.8 % (11.5-14.5) 04/09/17 08:00 Plt Count 165 10^3/uL (120.0-450.0) 04/09/17 08:00 MPV 11.0 fl (7.0-11.0) 04/09/17 08:00 PT 10.2 Seconds (9.9-11.8) 04/07/17 22:50 INR 0.94 (0.93-1.08) 04/07/17 22:50 APTT 27.3 Seconds (23.7-30.8) 04/07/17 22:50 D-Dimer, Quantitative 0.56 mg/L FEU (0-0.50) H 04/08/17 15:03 Sodium 137 mmol/L (132-148) 04/09/17 08:00 Potassium 4.2 mmol/L (3.6-5.0) 04/09/17 08:00 Chloride 105 mmol/L (98-107) 04/09/17 08:00 Carbon Dioxide 26 mmol/L (21-33) 04/09/17 08:00 Anion Gap 10 (10-20) 04/09/17 08:00 BUN 11 mg/dL (7-21) 04/09/17 08:00 Creatinine 0.8 mg/dL (0.5-1.4) 04/09/17 08:00 Est GFR ( Amer) > 60 04/09/17 08:00 Est GFR (Non-Af Amer) > 60 04/09/17 08:00 Random Glucose 95 mg/dL (70-110) 04/09/17 08:00 Calcium 8.4 mg/dL (8.4-10.5) 04/09/17 08:00 Phosphorus 4.1 mg/dL (2.5-4.5) 04/07/17 22:50 Magnesium 2.0 mg/dL (1.7-2.2) 04/07/17 22:50 Total Bilirubin 0.5 mg/dL (0.2-1.3) 04/07/17 22:50 AST 29 U/L (15-39) 04/07/17 22:50 ALT 29 U/L (7-56) 04/07/17 22:50 Alkaline Phosphatase 58 U/L (38-133) 04/07/17 22:50 Lactate Dehydrogenase 429 U/L (333-699) 04/07/17 22:50 Total Creatine Kinase 68 U/L (35-230) 04/07/17 22:50 Troponin I < 0.01 ng/mL 04/07/17 22:50 Total Protein 7.5 g/dL (5.8-8.3) 04/07/17 22:50 Albumin 4.1 g/dL (3.0-4.8) 04/07/17 22:50 Globulin 3.3 gm/dL 04/07/17 22:50 Albumin/Globulin Ratio 1.2 (1.1-1.8) 04/07/17 22:50 TSH 3rd Generation 2.09 mIU/mL (0.46-4.68) 04/08/17 12:30 Urine Color Yellow (YELLOW) 04/07/17 23:41 Urine Appearance Clear (CLEAR) 04/07/17 23:41 Urine pH 7.0 (4.7-8.0) 04/07/17 23:41 Ur Specific [place] 1.015 (1.005-1.035) 04/07/17 23:41 Urine Protein Negative mg/dL (<30 mg/dL) 04/07/17 23:41 Urine Glucose (UA) Negative mg/dL (NEGATIVE) 04/07/17 23:41 Urine Ketones Negative mg/dL (NEGATIVE) 04/07/17 23:41 Urine Blood Negative (NEGATIVE) 04/07/17 23:41 Urine Nitrate Negative (NEGATIVE) 04/07/17 23:41 Urine Bilirubin Negative (NEGATIVE) 04/07/17 23:41 Urine Urobilinogen 1.0 E.U./dL (<1 E.U./dL) H 04/07/17 23:41 Ur Leukocyte Esterase Negative Augusto/uL (NEGATIVE) 04/07/17 23:41 Urine HCG, Qual Negative (NEGATIVE) 04/07/17 23:41 Urine Opiates Screen Negative (NEGATIVE) 04/07/17 23:47 Urine Methadone Screen Negative (NEGATIVE) 04/07/17 23:47 Ur Barbiturates Screen Negative (NEGATIVE) 04/07/17 23:47 Ur Phencyclidine Scrn Negative (NEGATIVE) 04/07/17 23:47 Ur Amphetamines Screen Negative (NEGATIVE) 04/07/17 23:47 U Benzodiazepines Scrn Negative (NEGATIVE) 04/07/17 23:47 U Oth Cocaine Metabols Negative (NEGATIVE) 04/07/17 23:47 U Cannabinoids Screen Negative (NEGATIVE) 04/07/17 23:47 Attending/Attestation - Attestation I have personally seen and examined this patient.: Yes I have fully participated in the care of the patient.: Yes I have reviewed all pertinent clinical information, including history, physical exam and plan: Yes Notes (Text): 04/10/17 11:47 Patient was seen and examined with medical insurance coder .Agreed with resident assessment and plan. 36 yrs old female with PMH chronic headache and one episode of syncope , had extensive work up ,MRI of Brain, EEG which were normal. wasa dmitted with headache and presyncope, was found to be hypotensive, CT head was negative, was given IV fluid bolus, blood pressure improved, headache has also improved.Patient D dimmer was elevated.CT angio chest was negative for Pulmonary embolism.2 D echo reveals normal systolic function , mild to moderate MR.Patient is asymptomatic.Patient is ambulatory.She will be discharged home and will follow up with PCP. Management plan was discussed in detail with patient Education was provided.
== END 2017-04-09 13:28 | disposition home or self-care (01) ==
LOC: ED 20:49 → ERH 04-08 02:28 → 3RNO 04-08 03:46
PROVIDERS: ADMIT Internal Medicine; ATTEND Internal Medicine
DX: G43.109 Migraine with aura, not intractable, without status migrainosus (principal); I35.1 Nonrheumatic aortic (valve) insufficiency; R42 Dizziness and giddiness; I95.9 Hypotension, unspecified; R55 Syncope and collapse; Z87.891 Personal history of nicotine dependence
CPT/HCPCS: 36415; 70450; 71010; 71275; 80048; 80053; 80324; 80345; 80346; 80349; 80353; 80358; 80361; 81003; 82550; 83615; 83735; 83992; 84100; 84443; 84484; 84703; 85027; 85378; 85610; 85730; 93005; 93306; 99285; G0378; J7040; Q9967

== ENCOUNTER 2017-06-07 20:32 | Emergency (ER) | payer MEDICAID ==
[2017-06-07 20:32] VITALS: BMI 24.0
[2017-06-07 20:41] VITALS: TEMP 98.2
--- NOTE | 2017-06-07 21:13 | ED PDOC ---
Arrival/HPI - General Chief Complaint: Chest Pain Time Seen by Provider: 06/07/17 20:41 Historian: Patient - History of Present Illness Narrative History of Present Illness (Text): 06/07/17 21:09 A 36 year old female presents to the emergency department complaining of a cough and chest pain for the past week. Patient reports pain is diffuse across chest. Patient reports a productive cough with yellow sputum. Patient denies any other complaints at this time. Time/Duration: 1 week Symptom Onset: Sudden Symptom Course: Unchanged Activities at Onset: Rest Context: Home Past Medical History - Provider Review Nursing Documentation Reviewed: Yes - Past History Past History: No Previous - Infectious Disease Hx of Infectious Diseases: None - Tetanus Immunization Tetanus Immunization: Unknown - Reproductive Menopause: No - Cardiac Other/Comment: leaking valve dx 2-3 wks ago - Neurological Hx Neurological Disorder: Yes Hx Migraine: Yes - Musculoskeletal/Rheumatological Hx Falls: No - Genitourinary/Gynecological Hx Genitourinary Disorders: Yes Hx Cervical Cancer: Yes (4-5 MOS AGO) Other/Comment: multiparity - Psychiatric Hx Substance Use: No - Past Surgical History Past Surgical History: No Previous - Surgical History Hx Section: Yes Hx Dilation and Curettage: Yes Hx Tubal Ligation: Yes Other/Comment: OVARIAN CYSTECTOMY, PARTIAL REMOVAL OF CERVIX DUE TO CA ? - Anesthesia Hx Anesthesia: Yes Hx Anesthesia Reactions: No Hx Malignant Hyperthermia: No - Suicidal Assessment Feels Threatened In Home Enviroment: No Family/Social History - Physician Review Nursing Documentation Reviewed: Yes Family/Social History: No Known Family HX Smoking Status: Never Smoked Hx Alcohol Use: No Hx Substance Use: No Hx Substance Use Treatment: No Allergies/Home Meds Allergies/Adverse Reactions: Allergies No Known Allergies Allergy (Verified 06/07/17 20:41) Review of Systems - Physician Review All systems were reviewed & negative as marked: Yes - Review of Systems Constitutional: absent: Fevers Respiratory: Cough Cardiovascular: Chest Pain Neurological: absent: Headache, Dizziness Physical Exam Vital Signs Reviewed: Yes Vital Signs Temp Pulse Resp BP Pulse Ox 06/07/17 20:35 98.2 F 78 19 121/83 98 Temperature: Afebrile Blood Pressure: Normal Pulse: Regular Respiratory Rate: Normal Appearance: Positive for: Well-Appearing, Non-Toxic, Comfortable Pain Distress: None Mental Status: Positive for: Alert and Oriented X 3 - Systems Exam Head: Present: Atraumatic, Normocephalic Pupils: Present: PERRL Extroacular Muscles: Present: EOMI Conjunctiva: Present: Normal Mouth: Present: Moist Mucous Membranes Neck: Present: Normal Range of Motion Respiratory/Chest: Present: Clear to Auscultation, Good Air Exchange. No: Respiratory Distress, Accessory Muscle Use Cardiovascular: Present: Regular Rate and Rhythm, Normal S1, S2. No: Murmurs Abdomen: Present: Normal Bowel Sounds. No: Tenderness, Distention, Peritoneal Signs Back: Present: Normal Inspection Upper Extremity: Present: Normal Inspection. No: Cyanosis, Edema Lower Extremity: Present: Normal Inspection. No: Edema Neurological: Present: GCS=15, CN II-XII Intact, Speech Normal Skin: Present: Warm, Dry, Normal Color. No: Rashes Psychiatric: Present: Alert, Oriented x 3, Normal Insight, Normal Concentration Medical Decision Making ED Course and Treatment: 06/07/17 21:08 Impression: A 36 year old female with chest pain and cough. Plan: -- EKG -- chest xray -- Toradol -- Reassess and disposition Prior Visits: Notes and results from previous visits were reviewed. Patient was last seen in the emergency department on 04/07/17 for evaluation of dizziness. Progress Notes: EKG: Ordered, reviewed, and independently interpreted the EKG. Rate : 88 BPM Rhythm : NSR Interpretation : No ST/T wave changes Patient is perc negative. 06/07/17 21:55 pt reassesd: pain improved cxr neg as read by me. perc neg. pt speaking full sentences. in nad. stable for outpt managment. - RAD Interpretation Radiology Orders: 06/07/17 21:01 CXR [CHEST TWO VIEWS (PA/LAT)] [RAD] Stat - EKG Interpretation Interpreted by ED Physician: Yes Type: 12 lead EKG - Medication Orders Current Medication Orders: Discontinued Medications Ketorolac Tromethamine (Toradol) 30 mg IM STAT STA Stop: 06/07/17 21:03 Last Admin: 06/07/17 21:20 Dose: 30 mg Ketorolac Tromethamine (Toradol) Confirm Administered Dose 30 mg .ROUTE .STK- MED ONE Stop: 06/07/17 21:19 Last Admin: 06/07/17 21:21 Dose: - Scribe Statement The provider has reviewed the documentation as recorded by the Dani Padilla Provider Scribe Attestation: All medical record entries made by the Luhibnelson were at my direction and personally dictated by me. I have reviewed the chart and agree that the record accurately reflects my personal performance of the history, physical exam, medical decision making, and the department course for this patient. I have also personally directed, reviewed, and agree with the discharge instructions and disposition. Disposition/Present on Arrival - Present on Arrival Any Indicators Present on Arrival: No History of DVT/PE: No History of Uncontrolled Diabetes: No Urinary Catheter: No History of Decub. Ulcer: No History Surgical Site Infection Following: None - Disposition Have Diagnosis and Disposition been Completed?: Yes Diagnosis: Chest pain Disposition: HOME/ ROUTINE Disposition Time: 21:56 Condition: STABLE Discharge Instructions (ExitCare): Chest Pain (ED) Additional Instructions: please follow up with your doctor/specialist. return to emergency room with worsening symptoms or concerns. Prescriptions: Naproxen 500 mg PO BID PRN #14 tab PRN Reason: Pain, Mild (1-3) Referrals: [facility] [Outside] - Follow up with primary [facility] [Outside] - Follow up with primary [facility] [Outside] - Follow up with primary London [facility]cera MD [Staff Provider] - Follow up with primary Forms: [employer] ([employer])
[2017-06-07 22:16] VITALS: BP 120/82; PULSE 76; RESP 18; O2SAT 99
--- NOTE | 2017-06-08 07:28 | RAD ---
HISTORY: Chest pain COMPARISON: No prior. TECHNIQUE: Chest PA and lateral FINDINGS: LUNGS: The lungs are well inflated and clear. PLEURA: No significant pleural effusion identified. No pneumothorax apparent. CARDIOVASCULAR: Normal. OSSEOUS STRUCTURES: No significant abnormalities. VISUALIZED UPPER ABDOMEN: Normal. OTHER FINDINGS: None. IMPRESSION: No active pulmonary disease.
--- NOTE | 2017-06-08 21:43 | CARD ---
APPROVED REPORT EKG Measurement Heart [id number] <Conclusion> Normal sinus rhythm Normal ECG
== END 2017-06-07 22:10 | disposition home or self-care (01) ==
LOC: ED 20:32
DX: R07.9 Chest pain, unspecified (principal)
CPT/HCPCS: 71020; 93005; 96372; 99283; J1885

== ENCOUNTER 2017-12-19 20:42 | Emergency (ER) | payer MEDICAID ==
[2017-12-19 20:45] VITALS: BMI 27.4
[2017-12-19 21:06] VITALS: BP 116/78; PULSE 87; RESP 18; TEMP 98.1; O2SAT 99
--- NOTE | 2017-12-19 21:09 | ED PDOC ---
Arrival/HPI - General Chief Complaint: Chest Pain Time Seen by Provider: 12/19/17 20:45 Historian: Patient - History of Present Illness Narrative History of Present Illness (Text): 12/19/17 21:08 This 37 yo female with pmh heart valve regurgitation, presents to this ED c/o dizziness, right sided head pressure, chest pressure, sob and tingling of right hand x [employer]. Patient stated she felt very dizzy with palpitation. Patient stated she was admitted for similar symptoms in the past. Patient denies diplopia, dysarthria, dysphagia, cough, recent illness, skin rash, recent travel , or abnormal gait. Time/Duration: Other (see hpi) Context: Home Past Medical History - Provider Review Nursing Documentation Reviewed: Yes - Past History Past History: No Previous - Infectious Disease Hx of Infectious Diseases: None - Tetanus Immunization Tetanus Immunization: Unknown - Cardiac Other/Comment: "leaky valves" - Neurological Hx Neurological Disorder: Yes Hx Migraine: Yes - Musculoskeletal/Rheumatological Hx Falls: No - Genitourinary/Gynecological Hx Genitourinary Disorders: Yes Hx Cervical Cancer: Yes (4-5 MOS AGO) Other/Comment: multiparity - Psychiatric Hx Substance Use: No - Past Surgical History Past Surgical History: No Previous - Surgical History Hx Section: Yes Hx Dilation and Curettage: Yes Hx Tubal Ligation: Yes Other/Comment: OVARIAN CYSTECTOMY, PARTIAL REMOVAL OF CERVIX DUE TO CA ? - Anesthesia Hx Anesthesia: Yes Hx Anesthesia Reactions: No Hx Malignant Hyperthermia: No - Suicidal Assessment Feels Threatened In Home Enviroment: No Family/Social History - Physician Review Nursing Documentation Reviewed: Yes Family/Social History: Other (noncontributory) Smoking Status: Never Smoked Hx Alcohol Use: No Hx Substance Use: No Hx Substance Use Treatment: No Allergies/Home Meds Allergies/Adverse Reactions: Allergies No Known Allergies Allergy (Verified 06/07/17 20:41) Home Medications: Home Meds Medication Instructions Recorded Confirmed Aspirin [Aspirin Chewable] 1 tab PO PRN PRN 12/19/17 12/19/17 Review of Systems - Review of Systems Constitutional: Normal. absent: Fatigue, Weight Change, Fevers Eyes: Normal ENT: Normal Respiratory: Normal. absent: SOB, Cough Cardiovascular: Chest Pain, Palpitations, Other (see hpi). absent: Edema, Calf Pain, SCRUGGS, Orthopnea, Syncope Gastrointestinal: Normal. absent: Abdominal Pain, Nausea, Vomiting Genitourinary Female: Normal. absent: Dysuria, Frequency, Vaginal Bleeding, Vaginal Discharge Musculoskeletal: Normal. absent: Arthralgias, Back Pain, Neck Pain Skin: Normal. absent: Rash Neurological: Headache, Dizziness. absent: Focal Weakness, Gait Changes, Speech Changes, Facial Droop, Disequilibrium, Seizure Endocrine: Normal Hemo/Lymphatic: Normal Psychiatric: Normal Physical Exam Vital Signs Temp Pulse Resp BP Pulse Ox 12/19/17 21:03 98.1 F 87 18 116/78 99 Temperature: Afebrile Blood Pressure: Normal Pulse: Regular Respiratory Rate: Normal Appearance: Positive for: Well-Appearing, Non-Toxic, Comfortable Pain Distress: None Mental Status: Positive for: Alert and Oriented X 3 - Systems Exam Head: Present: Atraumatic, Normocephalic Pupils: Present: PERRL Extroacular Muscles: Present: EOMI Conjunctiva: Present: Normal Mouth: Present: Moist Mucous Membranes Neck: Present: Normal Range of Motion Respiratory/Chest: Present: Clear to Auscultation, Good Air Exchange. No: Respiratory Distress, Accessory Muscle Use Cardiovascular: Present: Regular Rate and Rhythm, Normal S1, S2. No: Murmurs Abdomen: Present: Normal Bowel Sounds. No: Tenderness, Distention, Peritoneal Signs, Rebound, Guarding Back: Present: Normal Inspection. No: CVA Tenderness Upper Extremity: Present: Normal Inspection. No: Cyanosis, Edema Lower Extremity: Present: Normal Inspection. No: Edema Neurological: Present: GCS=15, CN II-XII Intact, Speech Normal Skin: Present: Warm, Dry, Normal Color. No: Rashes Psychiatric: Present: Alert, Oriented x 3, Normal Insight, Normal Concentration Medical Decision Making ED Course and Treatment: 12/19/17 22:33 Patient stated she feels better. I recommended patient to stay in the hospital for observation. I asked patient if she agrees with observation/admission. She stated she prefers to go home and she wants to leave AMA. She stated she sees a assistant import manager at [facility], and she will see assistant import manager in 2 days. She also stated she will return to ED if symptoms returns. 12/19/17 22:36 Leaving Against Medical Advice (AMA): This patient is choosing to leave against medical advice. The EP has personally explained to the pt that choosing to do so may result in permanent bodily harm or . The EP discussed at great length that without further evaluation and monitoring there may be unforeseen circumstances and/or deterioration causing permanent bodily harm or as a result of their choice. The pt verbalized these risks back to the physician in laymans terms. The pt is alert, oriented, and shows the mental capacity to make clear decisions regarding the pts health care at this time. The pt continues to wish to leave against medical advice. In light of the pts decision to leave AMA, follow-up has been recommended and the pt is aware of the importance of following up as instructed. The pt has been advised that they should return to the ED immediately if they change their mind at any time, or if thier condition begins to change or worsen in any way. Re-evaluation Time: 22:37 Reassessment Condition: Re-examined, Improved - Lab Interpretations Lab Results: 12/19/17 21:50 12/19/17 21:50 Lab Results 12/19/17 21:50: Sodium 141, Potassium 3.8, Chloride 104, Carbon Dioxide 30, Anion Gap 11, BUN 16, Creatinine 0.9, Est GFR ( Amer) > 60, Est GFR (Non- Af Amer) > 60, Random Glucose 92, Calcium 9.6, Magnesium 2.2, Total Bilirubin 0.5, AST 35, ALT 32, Alkaline Phosphatase 50, Lactate Dehydrogenase 447, Total Creatine Kinase 91, Troponin I < 0.01, Total Protein 7.6, Albumin 4.3, Globulin 3.3, Albumin/Globulin Ratio 1.3 12/19/17 21:50: WBC 10.3 D, RBC 4.18, Hgb 12.7, Hct 38.0, MCV 90.9, MCH 30.4, MCHC 33.4, RDW 12.7, Plt Count 202, MPV 11.4 H, Gran % 74.1 H, Lymph % (Auto) 17.8 L, [place] % (Auto) 5.9, Eos % (Auto) 1.9, Baso % (Auto) 0.3, Gran # 7.60 H, Lymph # (Auto) 1.8, [place] # (Auto) 0.6, Eos # (Auto) 0.2, Baso # (Auto) 0.03 I have reviewed the lab results: Yes Interpretation: No clinic. lab abnormalty - RAD Interpretation Narrative RAD Interpretations (Text): 12/19/17 22:37 Chest x-rays: NAD Radiology Orders: 12/19/17 21:10 CHEST PORTABLE [RAD] Stat 12/19/17 21:11 HEAD W/O CONTRAST [CT] Stat - EKG Interpretation Interpreted by ED Physician: Yes (NSR @ [address] changes) Type: 12 lead EKG Comparison: No previous EKG avail. - Medication Orders Current Medication Orders: Discontinued Medications Aspirin (Aspirin) 325 mg PO STAT STA Stop: 12/19/17 21:10 Last Admin: 12/19/17 21:56 Dose: 325 mg Disposition/Present on Arrival - Present on Arrival Any Indicators Present on Arrival: No History of DVT/PE: No History of Uncontrolled Diabetes: No Urinary Catheter: No History of Decub. Ulcer: No History Surgical Site Infection Following: None - Disposition Have Diagnosis and Disposition been Completed?: Yes Diagnosis: Chest pain Disposition: AGAINST MEDICAL ADVICE Disposition Time: 22:45 Condition: UNKNOWN Discharge Instructions (ExitCare): Chest Pain (ED) Additional Instructions: Return to emergency if symptoms returns. Referrals: PCP,NO [Primary Care Provider] - Follow up with primary Forms: [employer] ([place])
[2017-12-19 22:04] LABS: BASO # 0.03 K/mm3 (0.0-2.0); BASO % 0.3 % (0.0-3.0); EOS # 0.2 (0.0-0.7); EOS % 1.9 % (1.5-5.0); GRAN # 7.6 (1.4-6.5); GRAN % 74.1 % (50.0-68.0); HEMOGLOBIN 12.7 g/dL (12.0-16.0); LYMPH # 1.8 (1.2-3.4); LYMPH % 17.8 % (22.0-35.0); MEAN CELL VOLUME 90.9 fl (80.0-105.0); MEAN CORPUSCULAR HEMOGLOBIN 30.4 pg (25.0-35.0); MEAN CORPUSCULAR HGB CONC 33.4 g/dl (31.0-37.0); MEAN PLATELET VOLUME 11.4 fl (7.0-11.0); MONO # 0.6 (0.1-0.6); MONO % 5.9 % (1.0-6.0); RBC 4.18 10^6/uL (3.5-6.1); RED CELL DISTRIBUTION WIDTH 12.7 % (11.5-14.5); WHITE BLOOD COUNT 10.3 10^3/ul (4.5-11.0)
--- NOTE | 2017-12-19 22:05 | CT ---
EXAM: CT Head Without Intravenous Contrast CLINICAL HISTORY: 37 years old, female; Signs and symptoms; Dizziness TECHNIQUE: Axial computed tomography images of the head/brain without intravenous contrast. All CT scans at this facility use one or more dose reduction techniques, viz.: automated exposure control; ma/kV adjustment per patient size (including targeted exams where dose is matched to indication; i.e. head); or iterative reconstruction technique. Coronal and sagittal reformatted images were created and reviewed. COMPARISON: CT - HEAD W/O CONTRAST 2017-04-07 23:16 FINDINGS: Brain: No intracranial hemorrhage. No mass. No definite edema. Ventricles: No hydrocephalus. Bones/joints: No acute fracture. Soft tissues: Unremarkable. Sinuses: No acute sinusitis. Mastoid air cells: No mastoid effusion. Orbits: Unremarkable as visualized. IMPRESSION: 1. No definite acute intracranial abnormality.
[2017-12-19 22:13] LABS: ALB/GLOB RATIO 1.3 (1.1-1.8); ALBUMIN 4.3 g/dL (3.0-4.8); ALT/SGPT 32 U/L (7-56); AST/SGOT 35 U/L (14-36); BLOOD UREA NITROGEN 16 mg/dL (7-21); CALCIUM 9.6 mg/dL (8.4-10.5); GFR AFRICAN-AMERICAN > 60; GFR NON-AFRICAN AMERICAN > 60
[2017-12-19 22:24] LABS: TROPONIN I < 0.01 ng/mL
--- NOTE | 2017-12-20 12:05 | RAD ---
HISTORY: Chest pain COMPARISON: 06/07/2017 FINDINGS: LUNGS: No active pulmonary disease. PLEURA: No significant pleural effusion identified, no pneumothorax apparent. CARDIOVASCULAR: Normal. OSSEOUS STRUCTURES: No significant abnormalities. VISUALIZED UPPER ABDOMEN: Normal. OTHER FINDINGS: None. IMPRESSION: No active disease. No significant interval change compared to the prior examination(s). Concordant results with the preliminary interpretation rendered by the emergency department physician procedure.
--- NOTE | 2017-12-20 23:07 | CARD ---
APPROVED REPORT EKG Measurement Heart [id number] <Conclusion> Poor data quality, interpretation may be adversely affected Normal sinus rhythm Normal ECG
== END 2017-12-19 22:40 | disposition left against medical advice (07) ==
LOC: ED 20:42
DX: R07.9 Chest pain, unspecified (principal); I38 Endocarditis, valve unspecified